=== PATIENT | female | born 1945 | race Hispanic/Latino ===

== ENCOUNTER → 2018-02-05 | Outpatient (CLI) | payer OTHER, MEDICARE | END | disposition home or self-care (01) | LOC: RAH 07:57 | PROVIDERS: ATTEND Internal Medicine | DX: Z12.31 Encounter for screening mammogram for malignant neoplasm of breast (principal) | CPT/HCPCS: 77067 ==

== ENCOUNTER 2018-09-07 00:44 | Observation (INO) | payer MEDICARE, OTHER ==
[~2018-09-07] VITALS: Ht 154.9 cm; Wt 97.5 kg
[2018-09-07 01:44] LABS: BASOPHILS % (AUTO) 0.4 % (0.0-5.0); EOSINOPHILS % (AUTO) 2.2 % (0.0-8.0); HEMATOCRIT 38.4 % (36-48); LYMPHOCYTES % (AUTO) 25.3 % (21.0-51.0); MEAN CORPUSCULAR HEMOGLOBIN 26.6 pg (27.0-33.0); MEAN CORPUSCULAR HGB CONC 33.5 g/dL (32.0-36.0); MEAN CORPUSCULAR VOLUME 79.5 fL (79-99); MONOCYTES % (AUTO) 6.5 % (3.0-13.0); NEUTROPHILS % (AUTO) 65.6 % (40.0-77.0); NUCLEATED RED BLOOD CELLS 0.1 % (0.0-0.19); PLATELET COUNT (AUTO) 233 K/uL (130-400); RED BLOOD CELL COUNT(AUTO) 4.83 MIL/uL (4.00-5.50); RED CELL DISTRIBUTION WIDTH 14.1 % (11.0-15.5); WHITE BLOOD COUNT (AUTO) 8.1 K/uL (4.8-10.8)
[2018-09-07 01:56] LABS: CREATININE 0.7 mg/dL (0.5-1.5); POTASSIUM 3.8 mmol/L (3.5-5.1)
[2018-09-07 01:59] LABS: INR 0.96 (0.85-1.15); PARTIAL THROMBOPLASTIN TIME 30.6 SEC (26.3-35.5); PROTHROMBIN TIME 10.1 SEC (9.6-11.6)
[2018-09-07 02:01] LABS: ALBUMIN 3.8 g/dL (3.5-5.0); BILIRUBIN,TOTAL 0.6 mg/dL (0.2-1.0)
[2018-09-07] MEDS ORDERED: ONDANSETRON HCL 4 MG/2 ML VIAL ONE (02:36)
[2018-09-07] MEDS ORDERED: ACETAMINOPHEN EXTRA STRENGTH 500 MG TABLET ONE (02:37)
[2018-09-07] MEDS ORDERED: ASPIRIN 325 MG TABLET ONE (02:37)
[2018-09-07] MEDS ORDERED: NITROGLYCERIN 1GM/1 INCH PACKET TD ONE (02:37)
[2018-09-07] MEDS ORDERED: HYDRALAZINE HCL 20 MG/ML VIAL IV PRN (03:15)
[2018-09-07 03:22] LABS: APPEARANCE,URINE Clear (CLEAR); BILIRUBIN,URINE Negative (NEGATIVE); COLOR,URINE Yellow (YELLOW); GLUCOSE, URINE (UA) Negative (NEGATIVE); KETONES,URINE Negative (NEGATIVE); LEUKOCYTE ESTERASE ,URINE Negative (NEGATIVE); NITRATE,URINE Negative (NEGATIVE); OCCULT BLOOD,URINE Negative (NEGATIVE); PROTEIN,URINE Negative (NEGATIVE)
[2018-09-07] MEDS ORDERED: PANTOPRAZOLE SODIUM 40 MG TABLET.DR PO SCH (09:00)
[2018-09-07] MEDS ORDERED: ASPIRIN 325 MG TABLET PO SCH (09:00)
[2018-09-07] MEDS ORDERED: ENOXAPARIN SODIUM 30 MG/0.3 ML SQ SCH (09:00)
[2018-09-07 11:51] LABS: TROPONIN I 0.09 ng/mL (0.00-0.06)
--- NOTE | 2018-09-07 16:30 | NUR ---
NICOLAS VALENZUELA WITH PT/SPOUSE,SON AT BEDSIDE; JIMMIE X3, ENG/SPAN SPEAKING, AMB HASReggie OTOOLEOING WALKER AT HOEM BUT DOES NOT USE IT, NO OTHE RDME, NO HH NO PROVIDER, LIVING WITH SON AND DAUGHTER IN LAW, HOME SAFE, [facility] Addendum: 09/09/18 at 1924 by KYLIE PEARL RN CM Amended: Links added.
[2018-09-07 17:26] VITALS: BP 178/76
[2018-09-07] MEDS ORDERED: METO50TA18 PO (18:07)
[2018-09-07] MEDS ORDERED: ATOR10 PO (18:07)
[2018-09-07] MEDS ORDERED: LISI-613 PO (18:07)
--- NOTE | 2018-09-07 19:18 | NUR ---
SBP 170'S, OKAY TO RESUME BP MEDS.
[2018-09-07 19:21] VITALS: BP 174/71
--- NOTE | 2018-09-07 20:00 | NUR ---
ASSESS SHIFT ASSESSMENT DONE, PLEASE REFER TO CHART. PT'S BP ELEVATED AT 174/71, HR=75 WITH RS ON TELE MONITOR. PT CLAIMS OF HAVING A HEADACHE. DUE MEDS ADMINISTERED, TOLERATED WELL. KEPT RESTED AND COMFORTABLE. WILL RE-ASSESS PT. Addendum: 09/07/18 at 2139 by ARLENE LY RN RN Amended: Links added.
[2018-09-07] MEDS: METOPROLOL TARTRATE 50 MG TAB PO SCH (20:02)
[2018-09-07] MEDS: ATORVASTATIN CALCIUM 20 MG TABLET PO SCH (20:02)
[2018-09-07] MEDS: LISINOPRIL 20 MG TABLET PO SCH (20:02)
[2018-09-07 21:00] VITALS: BP 156/68
--- NOTE | 2018-09-07 21:00 | NUR ---
RE-ASSESS PT V/S RE-CHECKED, NL=118/68, HR=70. PT STILL CLAIMS OF HEADACHE. PT TOOK OWN IBUPROFEN DOSE FROM HOME. WILL RE-ASSESS PT.
[2018-09-07 21:09] VITALS: BP 144/71
--- NOTE | 2018-09-07 21:14 | NUR ---
PAGED DR MENEZES PAGED VIA ANSWERING SERVICE. AWAITING CALL BACK.
--- NOTE | 2018-09-07 21:45 | NUR ---
RE-PAGED DR MENEZES HAS NOT ANSWERED PAGE AND WHEN CALLED ANSWERING SERVICE, INDUSTRIAL RELATIONS SPECIALIST WAS INFORMED THAT MD HAD BEEN PAGED 4X BUT GOES STRAIGHT TO VOICE MAIL. RESOURCE NURSE MADE AWARE.
--- NOTE | 2018-09-07 22:00 | NUR ---
CALL RESOURCE NURSE GAVE PHONE NUMBERS TO TRY TO GET A HOLD OF MD. MD HAS NOT ANSWERED BOTH PHONES AND VOICE MAIL OF ONE PHONE IS NOT SET UP AND ANOTHER HAS VOICE MAIL FULL.
[2018-09-07] MEDS ORDERED: TRAMADOL HCL 50 MG TABLET PO PRN (22:30)
--- NOTE | 2018-09-07 22:30 | NUR ---
MD ANSWERING SERVICE WAS ABLE TO GET DR MENEZES ON THE LINE AND REFERRED PT'S PAIN. NEW MED ORDER RECEIVED, PLEASE REFER TO CPOE. HEEL PACKER WENT IN TO ASSESS PT, PT ALREADY ASLEEP. KEPT UNDISTURBED FOR NOW.
[2018-09-08 00:34] VITALS: BP 150/81
--- NOTE | 2018-09-08 02:00 | NUR ---
ROUNDS PT RESTING WELL, FAIRLY ASLEEP WITH RESPIRATIONS EVEN AND UNLABORED. NO NOTED DISTRESS. KEPT UNDISTURBED FOR NOW. WILL CONTINUE TO MONITOR.
[2018-09-08 04:18] VITALS: BP 118/62
--- NOTE | 2018-09-08 05:45 | NUR ---
ROUNDS PT RESTING WELL, NO CONCERNS VERBALIZED. NO DISTRESS NOTED. SALINE LOCK FLUSHED, PATENT. KEPT COMFORTABLE. FOR MORE CARE.
[2018-09-08 07:30] VITALS: BP 180/79
[2018-09-08] MEDS: METOPROLOL TARTRATE 50 MG TAB PO SCH ×2 (08:45→21:00)
[2018-09-08] MEDS: LISINOPRIL 20 MG TABLET PO SCH ×2 (08:45→21:30)
[2018-09-08] MEDS ORDERED: PHARMACY COMMUNICATION MISC SCH (10:45)
[2018-09-08 11:00] VITALS: BP 157/62
[2018-09-08] MEDS ORDERED: GADODIAMIDE 10 MMOL/20 ML ML IV ONE (11:28)
[2018-09-08] MEDS ORDERED: MECLIZINE HCL 12.5 MG TABLET PO PRN (11:30)
[2018-09-08] MEDS: MECLIZINE HCL 12.5 MG TABLET PO SCH ×2 (14:17→22:10)
--- NOTE | 2018-09-08 15:26 | NUR ---
ROSANNE provided dietary education for heart healthy, low cholesterol/low fat diet. ROSANNE provided reference materials and reviewed with patient. Patient verbalized understanding. RD to follow-up. Addendum: 09/08/18 at [address] Amended: Links added.
--- NOTE | 2018-09-08 15:33 | NUR ---
RD Notification for High Blood Pressure Patient tolerating current Heart Healthy diet with no report of GI distress and PO intake at 100%. Patient reports she was able to 100% breakfast, however at little lunch as returned late from procedure and was not hungry. Otherwise appetite is good as per patient. Patient LBM 09/07/18. Patient monitored labs: Glu 129; All other nutritional labs WNL at time of screen. RD to continue to monitor nutritional labs and PO intake. Please notify RD as nutritional concerns arise. Thank you. Addendum: 09/08/18 at [address] RD Amended: Links added.
[2018-09-08 16:00] VITALS: BP 165/90
[2018-09-08] MEDS: AMLODIPINE BESYLATE 2.5 MG TAB PO SCH (17:46)
[2018-09-08 20:32] VITALS: BP 106/46
[2018-09-08] MEDS: ATORVASTATIN CALCIUM 20 MG TABLET PO SCH (21:29)
[2018-09-09 01:35] VITALS: BP 140/65
[2018-09-09 05:13] VITALS: BP 159/67
--- NOTE | 2018-09-09 06:40 | NUR ---
PATIENT UPDATE COMPLAINED OF SEVERE DIZZY SPELLS BET 2100 AND 2200 LAST NIGHT, SAME TIME THAT THE REHAB THERAPY MANAGER TECH CALLED ABOUT THE HEART RATE GOING DOWN TO THE 40'S FOR 5 SECONDS. PT KEPT ON BEDREST, METOPROLOL HELD. NO FURTHER RUNS OF BRADYCARDIA OVERNIGHT BUT CONTINUES WITH THE DIZZY SPELLS.
[2018-09-09] MEDS: MECLIZINE HCL 12.5 MG TABLET PO SCH (06:44)
[2018-09-09 08:19] VITALS: BP 180/76
[2018-09-09] MEDS: ASPIRIN 325MG EC TAB 325 MG TABLET.DR PO SCH (08:30)
[2018-09-09] MEDS: LISINOPRIL 20 MG TABLET PO SCH ×2 (08:30→21:58)
[2018-09-09] MEDS: AMLODIPINE BESYLATE 2.5 MG TAB PO SCH ×2 (08:30→12:10)
[2018-09-09] MEDS: METOPROLOL TARTRATE 50 MG TAB PO SCH (08:31)
--- NOTE | 2018-09-09 11:00 | NUR ---
PER DR. CARRILLO IF CAROTIDS ARE NEGATIVE MAY D/C FROM MY STANDPOINT.
[2018-09-09 11:57] VITALS: BP 156/76
[2018-09-09] MEDS ORDERED: MECLIZINE HCL 12.5 MG TABLET PO PRN (12:00)
--- NOTE | 2018-09-09 13:00 | NUR ---
dr. barron cardio aware of hr 40's with dizziness, orders entered.
--- NOTE | 2018-09-09 15:00 | NUR ---
PER DR MONREAL CARDIO MONITOR OVERNIGHT AND POSSIBLE D/C TOMORROW SEE ORDERS. D/T SETH 45'S, DECREASE METOPROLOL. INCREASE AMLODIPINE
[2018-09-09 16:28] VITALS: BP 152/65
--- NOTE | 2018-09-09 17:01 | NUR ---
OBS NOtified Dr. Grimaldo that patient is a 2 day OBS, pending notes, and cleared to dc by cardio. Pending orders.
[2018-09-09 20:00] VITALS: BP 137/63
[2018-09-09] MEDS ORDERED: METOPROLOL TARTRATE 50 MG TAB PO SCH (21:00)
[2018-09-09] MEDS ORDERED: METOPROLOL TARTRATE 25 MG TAB PO SCH (21:30)
[2018-09-09] MEDS: ATORVASTATIN CALCIUM 20 MG TABLET PO SCH (21:58)
[2018-09-10] VITALS (8 sets, daily range): BP systolic 116–201; BP diastolic 55–95
[2018-09-10] MEDS ORDERED: AMLODIPINE BESYLATE 5 MG TAB PO SCH (09:00)
[2018-09-10] MEDS: LISINOPRIL 20 MG TABLET PO SCH (09:37)
[2018-09-10] MEDS: ASPIRIN 325MG EC TAB 325 MG TABLET.DR PO SCH (09:38)
--- NOTE | 2018-09-10 18:30 | NUR ---
DISCHARGE INSTRUCTIONS GIVEN BY TEACH BACK. PRESCRIPTIONS GIVEN FOR PATIENT TO FILL. FOLLOW UP APPOINTMENT MADE AND FOR PATIENT TO FOLLOW UP WITH PCP AND DR. TERAN INDICATED. IV DISCONTINUE WITH INNER CANNULA INTACT. Addendum: 09/10/18 at 2009 by RICHARD MADERA LVN DR. MENEZES MADE AWARE OF PATIENTS BLOOD PRESSURE AND STATED PATIENT CAN GO HOME WITH PRESCRIPTION AND FOLLOW UP IN HIS OFFICE ON , AT 9:30
[2018-09-11] MEDS ORDERED: AMLODIPINE BESYLATE 5 MG TAB PO SCH (09:00)
== END 2018-09-10 18:48 | disposition home or self-care (01) ==
LOC: EDH 00:44 → EDHIP 02:35 → INTOOBSV 02:35 → 3CH 15:33
PROVIDERS: ADMIT Internal Medicine; ATTEND Internal Medicine
DX: I16.0 Hypertensive urgency (principal); E78.5 Hyperlipidemia, unspecified; R42 Dizziness and giddiness; R51 Headache; I11.0 Hypertensive heart disease with heart failure; I50.30 Unspecified diastolic (congestive) heart failure; R47.1 Dysarthria and anarthria; R79.89 Other specified abnormal findings of blood chemistry; I44.0 Atrioventricular block, first degree; I44.7 Left bundle-branch block, unspecified; I48.91 Unspecified atrial fibrillation; Z86.11 Personal history of tuberculosis; Z90.49 Acquired absence of other specified parts of digestive tract; Z79.899 Other long term (current) drug therapy
CPT/HCPCS: 36415; 70450; 70553; 71045; 80053; 81003; 82550; 83874; 83880; 84484 ×3; 85025; 85730; 85610; 93005; 93306; 93880; 99284; A4510; A9579; G0378 ×88; J2405

== ENCOUNTER → 2020-05-14 | Outpatient (CLI) | payer OTHER ==
[~2020-05-14] MED LIST: ATOR10 PO; LISI-613 PO; METO50TA18 PO
== END | disposition home or self-care (01) ==
LOC: RAH 14:52
PROVIDERS: ATTEND Internal Medicine
DX: Z12.31 Encounter for screening mammogram for malignant neoplasm of breast (principal)
CPT/HCPCS: 77067